=== PATIENT | male | born 1975 | race Caucasian/White ===

== ENCOUNTER 2017-11-14 20:09 | Emergency (ER) | payer SELFPAY ==
[~2017-11-14] VITALS: Ht 182.9 cm; Wt 81.6 kg
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
[2017-11-14] MEDS ORDERED: LIDOCAINE 2% 20 ML VIAL. IJ ONE (21:30)
[2017-11-14 21:40] VITALS: BP 113/63
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
[2017-11-14] MEDS ORDERED: CEPH-264 PO (22:07)
[2017-11-14] MEDS ORDERED: CEPHALEXIN 250 MG CAPSULE PO ONE (22:30)
== END 2017-11-14 22:14 | disposition home or self-care (01) ==
LOC: ER 20:09
DX: S91.115A Laceration without foreign body of left lesser toe(s) without damage to nail, initial encounter (principal); W25.XXXA Contact with sharp glass, initial encounter; Y93.E9 Activity, other interior property and clothing maintenance; Y99.8 Other external cause status; Y92.89 Other specified places as the place of occurrence of the external cause
CPT/HCPCS: 12001; 73660; 99284; J2001

== ENCOUNTER 2019-06-04 05:44 | Emergency (ER) | payer SELFPAY ==
[~2019-06-04] VITALS: Ht 177.8 cm; Wt 95.5 kg
[~2019-06-04 05:44] MED LIST: CEPH-264 PO
[2019-06-04] MEDS ORDERED: DIPHTH,PERTUSS(ACELL),TET TOX 0.5 ML DISP.SYRIN. VAX IM ONE (06:15)
[2019-06-04] MEDS ORDERED: IV NORMAL SALINE 50ML 50 ML ONE (06:27)
[2019-06-04] MEDS ORDERED: ceFAZolin SODIUM 1 GM VIAL ONE (06:27)
[2019-06-04 06:29] LABS: BASO % 0 % (0-3); EOS % 0 % (0-3); HEMATOCRIT 46.2 % (39.0-53.0); HEMOGLOBIN 15.1 g/dL (13.0-17.5); LYMPH # 1.3 x10^3/uL (1.0-4.8); LYMPH % 13 % (24-48); MEAN CORPUSCULAR HEMOGLOBIN 29 pg (25-35); MEAN CORPUSCULAR HGB CONC 33 g/dL (31-37); MEAN CORPUSCULAR VOLUME 89 fL (79-100); MONO # 0.5 x10^3/uL (0.0-1.1); MONO % 5 % (0-9); NEUT # 8.2 x10^3uL (1.8-7.7); NEUT % 81 % (31-73); PLATELET COUNT 217 x10^3/uL (140-400); RED BLOOD COUNT 5.22 x10^6/uL (4.30-5.70); RED CELL DISTRIBUTION WIDTH 13.2 % (11.5-14.5); WHITE BLOOD COUNT 10.1 x10^3/uL (4.0-11.0)
[2019-06-04 06:35] LABS: CALCIUM 8.4 mg/dL (8.5-10.1); GFR 81.6; POTASSIUM 3.7 mmol/L (3.5-5.1)
[2019-06-04 06:40] LABS: ALBUMIN 3.6 g/dL (3.4-5.0); ALBUMIN/GLOBULIN RATIO 1.1 (1.0-1.7); TOTAL BILIRUBIN 0.4 mg/dL (0.2-1.0); TOTAL PROTEIN 6.8 g/dL (6.4-8.2)
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
[2019-06-04] MEDS ORDERED: CONTRAST GIVEN MC PRN (06:45)
[2019-06-04] MEDS ORDERED: IOHEXOL 300 MG/ML 75 ML VIAL. IV ONE (06:45)
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
[2019-06-04] MEDS ORDERED: LIDOCAINE 1% PF 30 ML VIAL. INJ ONE (07:15)
[2019-06-04] MEDS ORDERED: IV NORMAL SALINE 1,000ML 1,000 ML IV ONE (08:00)
[2019-06-04] MEDS ORDERED: IOHEXOL 350 MG/ML 100 ML VIAL. IV ONE (08:15)
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
[2019-06-04 09:54] VITALS: BP 125/91
[2019-06-04 10:31] LABS: BARBITURATES NEG (NEG); BENZODIAZEPINES NEG (NEG); CANNABINOIDS NEG (NEG); COCAINE NEG (NEG); METHADONE NEG (NEG); OPIATES NEG (NEG); PHENCYCLIDINE NEG (NEG)
[2019-06-04 10:33] LABS: AMPHETAMINE/METHAMPHETAMINE POS (NEG)
[2019-06-04 10:52] LABS: BACTERIA,URINE 0 /HPF (0-FEW); BILIRUBIN,URINE NEG (NEG); CLARITY,URINE CLEAR; COLOR,URINE YELLOW; GLUCOSE,URINE NEG (NEG); NITRITE,URINE NEG (NEG); RBC,URINE 0 /HPF (0-2); SQUAMOUS EPITHELIAL CELL,UR OCC /LPF; UROBILINOGEN,URINE 0.2 mg/dL (0.2 mg/dL); WBC,URINE RARE /HPF (0-4)
== END 2019-06-04 11:00 | disposition short-term general hospital (02) ==
LOC: EEVIPCON 05:44 → ER 05:44
DX: S11.91XA Laceration without foreign body of unspecified part of neck, initial encounter (principal); W26.0XXA Contact with knife, initial encounter; Y93.89 Activity, other specified; Y92.89 Other specified places as the place of occurrence of the external cause; Y99.8 Other external cause status
CPT/HCPCS: 36415; 70450; 70491; 70498; 72125; 80053; 80307; 81001; 85025; 85610; 85730; 90471; 90715; 96365; 96375; 99285; G0480; J0690; J2001; J2060; Q9967; J7030